=== PATIENT | female | born 1985 | race Caucasian/White ===

== ENCOUNTER 2018-06-13 04:37 | Outpatient (CLI) | END 2018-06-13 08:30 | disposition home or self-care (01) ==

== ENCOUNTER 2018-07-17 12:28 | Outpatient (CLI) | END 2018-07-17 15:48 | disposition home or self-care (01) ==

== ENCOUNTER 2018-10-22 09:00 | Inpatient (IN) | payer MEDICAID ==
[~2018-10-22] VITALS: Ht 160 cm; Wt 79.8 kg
[~2018-10-22 09:00] MED LIST: FERR325T5 PO; PREN-19 PO
[2018-10-22] MEDS ORDERED: LACTATED RINGER'S 1,000 ML IV SCH (09:54)
[2018-10-22] MEDS ORDERED: OXYTOCIN 30 UNITS/LR 500 ML IV SCH ×2 (10:00→21:17)
[2018-10-22] MEDS ORDERED: METHYLERGONOVINE 0.2 MG INJ IM PRN ×2 (10:00→21:30)
[2018-10-22] MEDS ORDERED: CARBOPROST 250 MCG INJ IM PRN ×2 (10:00→21:30)
[2018-10-22] MEDS ORDERED: CEFAZOLIN 2 GM/50 ML (PMX) 50 ML IVPB SCH (10:00)
[2018-10-22] MEDS ORDERED: MISOPROSTOL 200 MCG TAB PR PRN ×2 (10:00→21:30)
[2018-10-22] MEDS ORDERED: OXYTOCIN 30 UNITS/LR 500 ML IV PRN ×2 (10:00→21:30)
[2018-10-22 10:07] VITALS: Ht 160 cm; Wt 79.8 kg
[2018-10-22] MEDS ORDERED: morphine SULFATE/PF (10 MG/10 ML) INJ ONE (17:53)
[2018-10-22] MEDS ORDERED: FENTAnyl 50 MCG/ML VIAL ONE (17:53)
--- NOTE | 2018-10-22 17:59 | HP ---
Date/Time of Note Date/Time of Note DATE: 10/22/18 TIME: 17:55 OB - History Hx of Present Free Text/Dictation 32-year-old 3 para 2002 with single intrauterine at 39 weeks with a ARIANNE of 10/29/2018 and previous delivery desires repeat delivery. She states good movement. She denies nausea, vomiting, shortness of breath, chest pain, headache, visual changes, vaginal bleeding or LOF. Chief Complaint: Scheduled for repeat delivery Estimated Due Date: Oct 29, 2018 : 3 Para: 2 Spontaneous : 0 Therapeutic : 0 Care: Good Care Ultrasounds: Normal mid trimester US Obstetrical Complications: None Past Family/Social History * Past Medical, Surgical, Family and Obstetric Histories reviewed from chart. Blood Type: O+ Rubella: immune RPR/VDRL: Negative GBS Status: Negative HBsAG: Negative OB Admission Exam Vital Signs Vital Signs Blood pressure 120/68, respiratory rate 16/minutes, pulse rate 70/minutes, temperature 98.6 Physical Exam HEENT: WNL Heart: Rhythm Normal Lungs: Clear Abdomen: WNL Extremities: Normal Reflexes: Normal Membranes: Intact Heart Rate: 130's Accelerations: Accelerations Present Decelerations: No Decelerations Varibility: Marked Contractions on Admission: None Last 72 hours Lab Results CBC & BMP 10/22/18 10:10 OB Assessment/Plan Other plan: 32-year-old with previous delivery at 39 weeks desires repeat delivery. She declined TOLAC. - FHR: No sign of metabolic acidosis- Category I - Continuous EFM, toco - CBC, blood type and screen - Analgesia options with R/B/A discussed in detail with patient - Epidural per patient request - Please see the orders - O+/Rubella: Immune - GBS: negative The risk of delivery including but not limited to bleeding, infection, injury to other organs (bowel, bladder, ureter, vessels, nerves), injury to fetus, blood transfusion, blood transfusion related infection, risk of anesthes ia, adhesion, needs for future , removal of uterus or any other indicated surgery was discussed with the patient and her family. She expressed understanding. All of her questions were answered. She signed the informed consent. PHYSICIAN'S VERIFICATION OF INFORMED CONSENT The patient was counseled regarding the procedure, its indications, risks, potential complications and alternatives and any questions were answered. Consent was obtained. PLANNED PROCEDURE/TREATMENT: delivery with possible using vacuum/forceps and any other indicated surgery PHYSICIAN'S VERIFICATION OF INFORMED CONSENT FOR BLOOD TRANSFUSION: There is a reasonable possibility that blood transfusion will be necessary as a result of the patient's procedure. I have discussed the following with the pat ient/patient's legal airline security representative: An explanation of the benefits and risks of the transfusion of blood or blood products and the possible alternatives. All questions have been answered to the patient's satisfaction. INFORMED CONSENT:The patient has been informed of: The nature of the proposed care, treatment, services, medications, interventions or procedures. Potential benefits, risks or side effects, including potential problems related to recuperation. The likelihood of achieving care treatment and service goals. Reasonable alternatives to the proposed care, treatment and service. The relevant risks, benefits and side effects related to alternatives, including the possible results of not receiving care, treatment and services. When indicated, any limitations on the confidentiality of information learned from or about the patient. If appropriate, the risks, benefits and alternatives of the drugs to be used for sedation/analgesia including moderate sedation. If appropriate, patient has been provided information on the risks, benefits and alternatives to the transfusion of blood and/or blood products. If appropriate, patient has been provided information regarding the [employer] Kal[employer] Blood Act. LINA MENDES Oct 22, 2018 17:59
--- NOTE | 2018-10-22 18:00 | PREAC ---
Date/Time of Note Date/Time of Note DATE: 10/22/18 TIME: 17:59 Anesthesia Eval and Record Evaluation Time Pre-Procedure Interview DATE: 10/22/18 TIME: 17:59 Age 32 Sex female NPO: 8 hrs Preoperative diagnosis previous c section Planned procedure repeat c section Past Medical History Past Medical History: None Surgery & Anesthesia Issues No known issue Meds Anticoagulation: No Beta Nubia within 24 hr: No Reason Beta Nubia not given: Pt. not on B-Nubia Reported Medications Ferrous Sulfate (Ferrous Sulfate) 325 Mg Tablet.dr, 325 MG PO DAILY 10/03/18 Vit #76/Iron,Carb/FA (Prenatabs Rx Tablet) 1 Each Tablet, 1 EACH PO DAILY, TAB 06/13/18 Current Medications Lactated Ringer's 1,000 ml @ 125 mls/hr Q8H IV ; Start 10/22/18 at 09:54 Cefazolin Sodium/ Dextrose 50 ml @ 100 mls/hr ONCE IVPB ; Start 10/22/18 at 10:00 Oxytocin/Lactated Ringer's 500 ml @ 125 mls/hr POST IV ; Start 10/22/18 at 10:00 Oxytocin/Lactated Ringer's 500 ml @ 0 mls/hr ONCE PRN IV .VAGINAL BLEEDING; Start 10/22/18 at 10:00 Methylergonovine Maleate (Methergine) 0.2 mg ONCE PRN IM .VAGINAL BLEEDING; Start 10/22/18 at 10:00 Carboprost Tromethamine (Hemabate) 250 mcg ONCE PRN IM .VAGINAL BLEEDING; Start 10/22/18 at 10:00 Misoprostol (Cytotec) 1,000 mcg ONCE PRN HI .VAGINAL BLEEDING; Start 10/22/18 at 10:00 Meds reviewed: Yes Allergies Coded Allergies: No Known Drug Allergy (Verified Allergy, Unknown, 06/13/18) Allergies Reviewed: Yes Labs/Studies Labs Reviewed: Reviewed by anesthesiologist Result Diagram: 10/22/18 1010 Laboratory Tests 10/22/18 10:10 Blood Bank Test 10/22/18 10:10 Antibody Screen NEGATIVE Blood Type O POSITIVE Rh Immune Globulin Candidate NO test: N/A Pre-procedure Exam Airway: Adequate mouth opening, Adequate thyromental dist Mallampati: Mallampati II Teeth: Normal Lung: Normal Heart: Normal ASA Physical Status ASA physical status: 2 Emergency: None Pre-operative Attestations Prior to commencing anesthesia and surgery, the patient was re-evaluated, there was verification of: *The patient's identity *The results of appropriate recent lab work and preoperative vital signs *The above evaluation not changing prior to induction *Anesthetic plan, risk benefits, alternative and complications discussed with patient/family; questions answered; patient/family understands, accepts and wishes to proceed. RADHA ROY DO Oct 22, 2018 18:00
[2018-10-22] MEDS ORDERED: ONDANSETRON 4 MG INJ ONE (18:15)
[2018-10-22] MEDS ORDERED: DIPHENHYDRAMINE 50 MG INJ ONE (18:16)
[2018-10-22] MEDS ORDERED: DEXAMETHASONE 4 MG/ML 1 ML INJ ONE (18:16)
[2018-10-22] MEDS ORDERED: PHENYLephrine (100 MCG/ML) 10ML SYG ONE (18:18)
--- NOTE | 2018-10-22 19:16 | PAC ---
Date/Time of Note Date/Time of Note DATE: 10/22/18 TIME: 19:15 Post-Anesthesia Notes Post-Anesthesia Note Last documented vital signs 105/63 75 99% 18 98.0 Activity: WNL Respiratory function: WNL Cardiovascular function: WNL Mental status: Baseline Pain reasonably controlled: Yes Hydration appropriate: Yes Nausea/Vomiting absent: Yes RADHA ROY DO Oct 22, 2018 19:16
[2018-10-22] MEDS ORDERED: HYDROmorphONE 0.5 MG/0.5 ML SYG IV PRN ×2 (19:30)
[2018-10-22] MEDS ORDERED: ZOLPIDEM 5 MG TAB PO PRN (19:30)
[2018-10-22] MEDS ORDERED: DIPHENHYDRAMINE 50 MG INJ IV PRN (19:30)
[2018-10-22] MEDS ORDERED: NALOXONE (0.4 MG/ML) INJ IV PRN (19:30)
[2018-10-22] MEDS ORDERED: ONDANSETRON 4 MG INJ IV PRN (19:30)
--- NOTE | 2018-10-22 21:17 | OPR ---
Operative Report Planned Procedure Procedure date Oct 22, 2018 Procedure(s) Repeat low transverse delivery Performed by see signature line Director Of Patient Care: BEV ARCHULETA M.D. Anesthesiologist: RADHA ROY DO Pre-procedure diagnosis 32-year-old 3 para 2001 with previous delivery at 39 weeks desires repeat delivery [id number] Anesthesia Type: Qbbke7d spinal Post-Procedure Post-procedure diagnosis 32-year-old 3 para 2001 with previous delivery at 39 weeks desires repeat delivery Findings 1. Normal uterus, fallopian tubes and ovaries 2. Viable female in cephalic presentation. 9 at one minute and 9 in 5 minutes. Weight: 8 pounds 11 ounces. Height 20 inches. Time of delivery: 18:32 3. Placenta with three vessel cord 4. Amniotic fluid -thin meconium Estimated Blood Loss: 500 - 600 mls Specimen(s) none Grafts/Implant(s) none Complication(s) none Pt Condition post procedure: stable Disposition: PACU Procedure Description INDICATION AND HISTORY: A 32-year-old 3 para 2001 with previous delivery at 39 weeks desires repeat delivery. The risk of delivery including but not limited to bleeding, infection, injury to other organs (bowel, bladder, ureter, vessels, nerves), injury to fetus, blood transfusion, blood transfusion related infection, risk of anesthesia, adhesion, needs for future , removal of uterus or any other indicated surgery was discussed with the patient and her family. She expressed understanding. All of her questions were answered. She signed the informed consent. DESCRIPTION OF OPERATION: The patient was taken to the operating room, where she was identified and the procedure was verified. The patient received two gram of Ancef 30 minutes prior to surgery. Spinal anesthesia was placed. The patient placed in the dorsal supine position with a left tilt. The heart rate was 134 bpm. The patient was then prepped and draped in the normal sterile fashion. A Pfannensti el skin incision was made and carried down to the fascia with knife. The fascia was incised in the midline and the fascial incision was carried laterally with knife. The superior portion of the fascial incision was then grasped with Irene clamps and tented up and dissected off the underlying rectus muscle with sharp dissection. The lower portion of the fascial incision was then made in a similar fashion. The rectus muscle was and the peritoneum was entered. The peritoneal incision was then stretched and an Stiven retractor was inserted. Then, an incision was made in the lower uterine segment in a transverse fashion with a knife and extended bluntly. The was delivered atraumatically in cephalic presentation with the above findings. The umbilical cord was clamped and cut. The neonatology resuscitation team was present and the baby was handed to them. A cord blood sample was obtained for further evaluation. The placenta and membrane, which appeared normal were Removed. The uterus was exteriorized and cleared of all clot and debris. The uterus was then closed in a two layer fashion with 0-Monocryl. At the time of closure, hemostasis was noted. The gutters were irrigated. The peritoneum was reapproximated with 3-0 Vicryl. The muscle was reapproximated with 3-0 Vicryl. The fascia was approximated with 0-Vicryl in a running fashion. *The subcutaneous tissue was re approximated with 3-0 vicryl. The skin was closed with 4-0 Monocryl. All instruments, sponges and needle counts were correct x3. The patient tolerated the procedure well. She transferred to the recovery room in stable condition. LINA MENDES Oct 22, 2018 21:17
[2018-10-22] MEDS ORDERED: METHYLERGONOVINE 0.2 MG TAB PO PRN (21:30)
[2018-10-22] MEDS ORDERED: LANOLIN HPA 1 PKT TOP PRN (21:30)
[2018-10-22] MEDS: IBUPROFEN 800 MG TAB PO SCH (22:00)
[2018-10-22 22:30] VITALS: BP 128/75; RESP 18
[2018-10-22] MEDS: DEXTROSE 5%-LR 1,000 ML IV SCH (23:49)
[2018-10-23 00:40] VITALS: BP 112/68; PULSE 81; RESP 18
[2018-10-23 04:00] VITALS: BP 102/62; PULSE 78; RESP 17
[2018-10-23] MEDS: IBUPROFEN 800 MG TAB PO SCH ×4 (06:00→22:45)
[2018-10-23] MEDS: DEXTROSE 5%-LR 1,000 ML IV SCH ×3 (07:12→21:17)
[2018-10-23 08:00] VITALS: BP 95/55; PULSE 83; RESP 18
[2018-10-23] MEDS: KETOROLAC 30 MG INJ IV PRN ×2 (10:32→15:58)
[2018-10-23] MEDS: SENNA/DOCUSATE NA (8.6MG/50MG) TAB PO SCH ×2 (10:32→21:59)
[2018-10-23] MEDS ORDERED: HYDROCODONE/APAP (5/325) TAB NGT PRN (11:00)
[2018-10-23] MEDS ORDERED: DIPHTH/TET/ACEL PERTUSS (ADULT) 0.5 ML VIAL IM* ONE (11:00)
[2018-10-23 12:00] VITALS: BP 100/53; PULSE 81; RESP 19
[2018-10-23] MEDS: HYDROCODONE/APAP (5/325) TAB GTB SCH ×2 (14:00→21:59)
--- NOTE | 2018-10-23 14:18 | PN ---
Date/Time of Note Date/Time of Note DATE: 10/23/18 TIME: 14:08 OB Subjective Subjective Subjective POD#1 Patient is doing well. She denies nausea, vomiting, shortness of breath, chest pain, headache. She has been ambulating without difficulty, tolerating regular diet. Pain is well controlled on current medications OB Objective Objective Objective Vital Signs Date Temp Pulse Resp B/P (MAP) Pulse Ox O2 O2 Flow FiO2 Time Delivery Rate 10/23/18 98.6 81 19 100/53 99 12:00 (69) 10/23/18 Room Air 08:00 General: AAO X 3, comfortable, NAD, appropriate mood and affect. Heart: RRR +S1, +S2, no murmurs. Lungs: Clear to auscultation (B/L), no rales, rhonchi or wheezing. ABD: +BS. Soft, non-tender. Uterus 2 cm below umbilicus Incision: Dry dressing Flank: No CVA tenderness (B/L) LE: Mild edema. No clubbing, cyanosis, thigh or calf tenderness (B/L). Homans 'sign is negative OB Assessment/Plan Other plan: 32-year-old 3 para 3003 s/p repeat delivery POD#1 - AF, VSS - Baby is doing well, at bed side. She is bonding well - Contraception methods with R/B/A/FR discussed - Continue care LINA MENDES Oct 23, 2018 14:18
[2018-10-23 15:58] VITALS: BP 103/55; PULSE 95; RESP 18
[2018-10-23 20:00] VITALS: BP 114/62; PULSE 75; RESP 18
[2018-10-24 04:00] VITALS: BP 108/63; PULSE 84; RESP 18
[2018-10-24] MEDS: DEXTROSE 5%-LR 1,000 ML IV SCH ×3 (05:17→21:17)
[2018-10-24] MEDS: IBUPROFEN 800 MG TAB PO SCH ×3 (07:00→21:27)
[2018-10-24] MEDS: HYDROCODONE/APAP (5/325) TAB GTB SCH ×3 (07:00→21:27)
[2018-10-24 08:00] VITALS: BP 119/73; PULSE 16; RESP 18
[2018-10-24] MEDS: SENNA/DOCUSATE NA (8.6MG/50MG) TAB PO SCH ×2 (09:00→21:27)
[2018-10-24 16:30] VITALS: BP 120/65; PULSE 84; RESP 18
--- NOTE | 2018-10-24 18:28 | PN ---
Date/Time of Note Date/Time of Note DATE: 10/24/18 TIME: 18:26 OB Subjective Subjective Subjective Breast-feeding. Pain well controlled. Reports decreased vaginal bleeding. Tolerated regular diet. Ambulating. Denies any shortness of breath or chest pain. Denies any dizziness or lightheadedness. OB Objective Objective Objective General appearance: Alert and oriented x4 does not appear to be in any acute distress Abdomen: Soft, fundus palpable firm and nontender palpable 2 cm below the umbilicus incision: Clean dry and intact with no evidence of infection,Erythema or drainage Extremities: No calf tenderness, no click no edema Lungs: Clear to auscultation bilaterally CV: RRR Breast: No evidence of mastitis or fissure VS - Last 72 Hours, by Label Date Temp Pulse Resp B/P (MAP) Pulse Ox O2 O2 Flow FiO2 Time Delivery Rate 10/24/18 98.8 84 18 120/65 Room Air 16:30 (83) 10/24/18 98.3 16 18 119/73 Room Air 08:00 (88) 10/24/18 98.5 84 18 108/63 Room Air 04:00 (78) 10/23/18 98.8 75 18 114/62 Room Air 20:00 (79) 10/23/18 98.9 95 18 103/55 98 Room Air 15:58 (71) 10/23/18 98.6 81 19 100/53 99 12:00 (69) 10/23/18 98.5 83 18 95/55 (68) 99 Room Air 08:00 10/23/18 98.0 78 17 102/62 97 04:00 (75) 10/23/18 98.0 81 18 112/68 96 Room Air 00:40 (83) 10/22/18 97.7 18 128/75 95 Room Air 22:30 (92) OB Assessment/Plan Other Assessment: Status post repeat section Postoperative day #2 Doing well Mild anemia, postop, asymptomatic Routine postop care Iron and vitamin with stool softener TRENT ROSARIO MD Oct 24, 2018 18:28
[2018-10-24 20:00] VITALS: BP 127/74; PULSE 78; RESP 19
[2018-10-25] MEDS: POLYSACCHARIDE IRON COMPLEX CAP PO SCH ×2 (00:08→09:00)
[2018-10-25 04:00] VITALS: BP 117/71; PULSE 87; RESP 18
[2018-10-25] MEDS: DEXTROSE 5%-LR 1,000 ML IV SCH (05:17)
[2018-10-25] MEDS: IBUPROFEN 800 MG TAB PO SCH ×2 (05:48→13:12)
[2018-10-25] MEDS: HYDROCODONE/APAP (5/325) TAB GTB SCH (05:48)
[2018-10-25 08:45] VITALS: BP 127/78; PULSE 80; RESP 18
[2018-10-25] MEDS ORDERED: MEASLES,MUMPS,RUBELLA VACCINE INJ SC* ONE (09:00)
[2018-10-25] MEDS ORDERED: DIPHTH/TET/ACEL PERTUSS (ADULT) 0.5 ML VIAL IM* ONE (09:00)
--- NOTE | 2018-10-25 13:05 | DS ---
Date/Time of Note Date/Time of Note DATE: 10/25/18 TIME: 13:04 Obstetrical Discharge Record Final Diagnosis Final Diagnosis: Term delivered Section Section: Repeat Complications Augmentation: No Induction: No Rupture of Membranes: No Condition on Discharge Physical Assessment Last Vitals: Vss afebrile Voiding: Yes Bowel Movement: Yes Breast: Soft, non-tender Fundus: Firm Abdomen and Incision: soft wound dry Episiotomy: n/a Calf Tenderness: No Patient Condition: Stable HELENA RODRIGUEZ MD Oct 25, 2018 13:05
--- NOTE | 2018-10-25 13:07 | PD.PPDC ---
RETAIL WAREHOUSE SUPERVISOR Discharge Instruction Diagnosis Bhydq1Oy Final Diagnosis: Ozwol8q s/p R C/S Condition [id number] Patient Condition: Qzypt7e Stable Diet Pgout5Xw Diet: Jhobn1w Resume Regular Diet Activity/Restrictions Nllbs0Mf Activity: Ntxcj2f May Shower Gnwkm9Ws Restrictions: Mfxfi2u No Exercising No Lifting Minimize Stair-climbing No Sexual Activity Nothing in the Vagina No [place] No Tampons, douche Wound/Drain Care Instructions Viayz3Pz Wound/Drain Care Instructions: Wdqjw8k Wash with soap and water Keep clean and dry Follow-up Follow-up with Physician: 2, Week/Weeks Return to clinic for Blszx0Db AIRCRAFT STRUCTURAL REPAIRER Instructions: Tnvlx0y Fever greater than 101 Chills Worsening abdominal pain Excessive Vaginal Bleeding More than 2 pads per hour Unable to tolerate diet Zmotu7Sq OB Instructions: Unbup6s Breast Tenderness Depression Blurried Vision Headache Bzktr5Ef Surgical Instructions: Twkfi9g Incisional Drainage Incisional Redness HELENA RODRIGUEZ MD Oct 25, 2018 13:07
[2018-10-25] MEDS: SENNA/DOCUSATE NA (8.6MG/50MG) TAB PO SCH (13:12)
== END 2018-10-25 18:21 | disposition home or self-care (01) | DRG 788 ==
LOC: L-D 09:43 → MS1 22:33
PROVIDERS: ADMIT Obstetrics & Gynecology; ATTEND Obstetrics & Gynecology
PROC: 10D00Z1 Extraction of Products of Conception, Low, Open Approach (ICD-10-PCS; principal; 2018-10-22 18:00)
DX: O34.219 Maternal care for unspecified type scar from previous cesarean delivery (principal); Z3A.39 39 weeks gestation of pregnancy; Z37.0 Single live birth; O90.81 Anemia of the puerperium
CPT/HCPCS: 85025; 85610; 85730; 86592; 86850; 86900; 86901; 87340; 90715; 99464; J0690; J1100; J1200; J1885; J2274; J2370; J2405; J2590; J3010; J7120; J7121

== ENCOUNTER → 2018-12-02 | Emergency (ER) | payer MEDICAID ==
[~2018-12-02] VITALS: Ht 160 cm; Wt 68.7 kg
[~2018-12-02] MED LIST changes: +CEFTRIAXONE 1 GM INJ IM ONE; +CIPR500T4 PO; +LIDOCAINE 1% (MPF) 5 ML VIAL INFIL ONE; +METH750T93 PO
[2018-12-02 17:03] VITALS: BP 112/61; PULSE 99; RESP 18; Ht 160 cm; Wt 68.7 kg
--- NOTE | 2018-12-02 19:00 | ERD ---
ER Documentation Chief Complaint Chief Complaint FEVER , BURNING URINATION X 4 DAYS HPI 33-year-old female presents for burning with urination and fever times 4 days. She states that the fever has been about 100.8. She has been taking Tylenol Motrin with some relief she would get the fever again. She states that she has burning sensation with urination. Still complains of mid back pain bilaterally. She went to the clinic today and was tested for urine however she was told that the urine was negative for infection. Denies significant past medical history. ROS All systems reviewed and are negative except as per history of present illness. Medications Home Meds Active Scripts Methocarbamol* (Robaxin*) 750 Mg Tablet, 750 MG PO TID PRN for MUSCLE SPASMS, #30 TAB Prov:KYLIEAURA 12/02/18 Ciprofloxacin Hcl* (Ciprofloxacin Hcl*) 500 Mg Tablet, 500 MG PO BID for pyel onephritis for 7 Days, #14 TAB Prov:AURA ESPINAL DO 12/02/18 Reported Medications Ferrous Sulfate (Ferrous Sulfate) 325 Mg Tablet.dr, 325 MG PO DAILY 10/03/18 Vit #76/Iron,Carb/FA (Prenatabs Rx Tablet) 1 Each Tablet, 1 EACH PO DAILY, TAB 06/13/18 Allergies Allergies: Coded Allergies: No Known Drug Allergy (Verified Allergy, Unknown, 06/13/18) PMhx/Soc History of Surgery: Yes () Anesthesia Reaction: No Hx Neurological Disorder: No Hx Respiratory Disorders: No Hx Cardiac Disorders: No Hx Psychiatric Problems: No Hx Miscellaneous Medical Probl: No Hx Alcohol Use: No Hx Substance Use: No Hx Tobacco Use: No Physical Exam Vitals Vital Signs Date Temp Pulse Resp B/P (MAP) Pulse Ox O2 O2 Flow FiO2 Time Delivery Rate 12/02/18 98.1 99 18 112/61 99 17:03 (78) Physical Exam Const: No acute distress Resp: Clear to auscultation bilaterally Cardio: Regular rate and rhythm, no murmurs Abd: Soft, non tender, non distended. Normal bowel sounds Skin: No petechiae or rashes Back: Bilateral CVA tenderness Ext: No cyanosis, or edema Neur: Awake and alert Psych: Normal Mood and Affect Results 24 hrs Laboratory Tests Test 12/02/18 18:14 Urine Color YELLOW Urine Clarity CLOUDY Urine pH 6.0 Urine Specific [place] 1.004 Urine Ketones NEGATIVE mg/dL Urine Nitrite NEGATIVE mg/dL Urine Bilirubin NEGATIVE mg/dL Urine Urobilinogen NEGATIVE mg/dL Urine Leukocyte Esterase 3+ Luis Angel/ul Urine Microscopic RBC 4 /HPF Urine Microscopic WBC > 182 /HPF Urine Squamous Epithelial Cells MODERATE /HPF Urine Bacteria FEW /HPF Urine Hemoglobin 2+ mg/dL Urine Glucose NEGATIVE mg/dL Urine Total Protein 1+ mg/dl Current Medications Medications Dose Sig/Wanda Start Time Status Last (Trade) Ordered Route PRN Stop Time Admin Dose Reason Admin Ceftriaxone 1 gm ONCE ONCE 12/02/18 12/02/18 Sodium IM 19:00 12/02/18 18:46 (Rocephin) 19: Lidocaine 5 ml ONCE ONCE 12/02/18 12/02/18 (Xylocaine INFIL 19:00 12/02/18 18:45 1% (Mpf)) 19:01 Procedures/MDM Medical Decision Making: Differential diagnosis includes but not limited to sepsis, cystitis, urethritis, pyelonephritis, appendicitis, pancreatitis, cholecystitis Patient appeared well on physical exam. ED course: UA was consistent with a pyuria Patient was given Rocephin IM. Symptoms improved with treatment. Patient possibly has pyelonephritis Prescription(s): Patient given prescription for Cipro. Urine culture ordered. Patient will be notified if any changes need to be made with her antibiotic prescription. Patient advised to follow up with PCP in 1-2 days. Patient advised to return to ED for new or worsening symptoms. Patient stable on discharge from the ED. Disclaimer: Inadvertent spelling and grammatical errors are likely due to EHR/dictation software use and do not reflect on the overall quality of patient care. Also, please note that the electronic time recorded on this note does not necessarily reflect the actual time of the patient encounter. Departure Diagnosis: Primary Impression: Pyelonephritis Condition: Fair Patient Instructions: Pyelonephritis, Female (Adult) Referrals: COMMUNITY CLINICS YOU HAVE RECEIVED A MEDICAL SCREENING EXAM AND THE RESULTS INDICATE THAT YOU DO NOT HAVE A CONDITION THAT REQUIRES URGENT TREATMENT IN THE EMERGENCY DEPARTMENT. FURTHER EVALUATION AND TREATMENT OF YOUR CONDITION CAN WAIT UNTIL YOU ARE SEEN IN YOUR DOCTORS OFFICE WITHIN THE NEXT 1-2 DAYS. IT IS YOUR RESPONSIBILITY TO MAKE AN APPOINTMENT FOR FOLOW-UP CARE. IF YOU HAVE A PRIMARY DOCTOR --you should call your primary doctor and schedule an appointment IF YOU DO NOT HAVE A PRIMARY DOCTOR YOU CAN CALL OUR PHYSICIAN REFERRAL HOTLINE AT IF YOU CAN NOT AFFORD TO SEE A PHYSICIAN YOU CAN CHOSE FROM THE FOLLOWING [facility] [address] [facility] [address] [facility] [address] [facility] [address] [facility] [facility] [address] [facility]. [facility]. [address] Additional Instructions: Call your primary care doctor TOMORROW for an appointment during the next 1-2 days.See the doctor sooner or return here if your condition worsens before your appointment time. AURA ESPINAL DO Dec 02, 2018 19:00
== END | disposition home or self-care (01) ==
LOC: FTE 16:58
DX: N12 Tubulo-interstitial nephritis, not specified as acute or chronic (principal)
CPT/HCPCS: 81001; 87086; 96372; J0696; Z7502; Z7610